=== PATIENT | male | born 1965 | race African-American/Black ===

== ENCOUNTER 2018-07-03 01:44 | Emergency (ER) | payer OTHER ==
[~2018-07-03] VITALS: Ht 172.7 cm; Wt 90.7 kg
[~2018-07-03 01:44] MED LIST: UNOBMED
--- NOTE | 2018-07-03 01:49 | Emergency Room Report ---
History of Present Illness General Chief Complaint: Medical Clearance Source: Patient Present Illness HPI Is a 52-year-old male with a history of high blood pressure. He was brought in with chief complaint of high blood pressure. He was pulled over by police. He had an outstanding warrant so they arrested him. In the process he got anxious and has some palpitation. He said that he had high blood pressure. Her blood pressure was elevated. He did not take his vacation the last couple days. He doesn't know the name of his blood pressure medication. Said he take 2 of them. No chest pain. No nausea no vomiting. No fever chills but no shortness of breath. Allergies: Coded Allergies: No Known Allergies (Unverified , 07/03/18) Patient History Past Medical History: see triage record, old chart reviewed, HTN Past Surgical History: other Pertinent Family History: none Social History: Reports: smoking Immunizations: other Reviewed Nursing Documentation: PMH: Agreed; PSxH: Agreed Nursing Documentation-PMH Hx Hypertension: Yes Review of Systems Eye: Denies: eye pain, blurred vision ENT: Denies: ear pain, nose congestion, throat swelling Respiratory: Denies: cough, shortness of breath Cardiovascular: Reports: palpitations; Denies: chest pain Gastrointestinal: Denies: abdominal pain, diarrhea, nausea, vomiting Musculoskeletal: Denies: back pain, joint pain Skin: Denies: rash Neurological: Denies: headache, numbness Endocrine: Denies: increased thirst, increased urine Hematologic/Lymphatic: Denies: easy bruising All Other Systems: negative except mentioned in HPI Physical Exam Vital Signs Date Time Temp Pulse Resp B/P (MAP) Pulse Ox O2 Delivery O2 Flow Rate FiO2 07/03/18 01:40 97.5 91 18 185/100 98 Room Air vitals with high blood pressure Sp02 EP Interpretation: reviewed, normal General Appearance: well appearing, no apparent distress, alert Head: normocephalic, atraumatic Eyes: bilateral eye PERRL, bilateral eye EOMI ENT: hearing grossly normal, normal pharynx Neck: full range of motion, supple, no meningismus Respiratory: chest non-tender, lungs clear, normal breath sounds Cardiovascular #1: regular rate, rhythm, no murmur Gastrointestinal: normal bowel sounds, non tender, no mass, no organomegaly, no bruit, non-distended Musculoskeletal: back normal, gait/station normal, normal range of motion Psychiatric: mood/affect normal Skin: warm/dry Medical Decision Making Diagnostic Impression: Primary Impression: Hypertension Qualified Codes: I10 - Essential (primary) hypertension Additional Impression: Examination, medicolegal reason ER Course Patient here for medical clearance. He has high blood pressure but no evidence of endorgan damage. He has no complaint from it. This probably secondary to noncompliance with his medication. May be secondary to alcohol and drugs. Dose of blood pressure medication given here. We'll discharge home. Last Vital Signs Date Time Temp Pulse Resp B/P (MAP) Pulse Ox O2 Delivery O2 Flow Rate FiO2 07/03/18 01:40 97.5 91 18 185/100 98 Room Air Status: improved Disposition: D/C TO LAW ENFORCEMENT IN [facility] Condition: Stable Additional Instructions: Take your blood pressure medication. Follow-up with your doctor in 7 days. Return if worse. Tate Alvarez MD Jul 03, 2018 01:49
--- NOTE | 2018-07-03 01:56 | NUR ---
ED Nurse Note: Patient biba Ra 27 accompanied by [employer] for a medical clearance for HTN status, patient was pulled over and was found with warrants. Pt is AO x 4times, VSS, on room air no distress, ERMD seen Pt at bedside.
[2018-07-03 01:58] VITALS: BP 185/100
--- NOTE | 2018-07-03 02:05 | NUR ---
ER DISCHARGE NOTE: Patient is cleared to be discharged per ERMD, pt is aox4, on room air, with vital signs BP 162/95 HR87. [employer] was given dc and prescription instructions, pofficer was able to verbalize understanding, pt id band removed without complications. pt is able to ambulate with steady gait with [employer]. Officer took all belongings.
[2018-07-03 02:07] VITALS: BP 162/95
== END 2018-07-03 04:17 ==
LOC: EDBD 01:44 → EMR 02:00
DX: I10 Essential (primary) hypertension (principal); Z02.89 Encounter for other administrative examinations
CPT/HCPCS: 99283